=== PATIENT | male | born 1975 | race African-American/Black ===

== ENCOUNTER 2023-08-02 13:59 | Inpatient (IN) | payer OTHER ==
[~2023-08-02] VITALS: Ht 172.7 cm; Wt 75.0 kg
[2023-08-02] VITALS (8 sets, daily range): BP systolic 83–118; BP diastolic 57–75; PULSE 61–71; RESP 18; TEMP 96.8–98
[~2023-08-02 13:59] MED LIST: AMBR10TA3 PO; AMIO200T68 PO; APIX2.5T PO; B CO1CAP6 PO; CARV3 PO; CETI-450 PO; CLOP75TA60 PO; PANT-31 PO; PRAV20TA4 PO; SILD20TA PO; TRIA16.911 NASAL
[2023-08-02 14:35] LABS: BASOPHILS % (AUTO) 0.9 % (0.0-2.0); HEMATOCRIT 35.8 % (41-53); HEMOGLOBIN 11.4 g/dL (13.5-17.5); LYMPHOCYTES # (AUTO) 0.9 K/uL (1.0-4.8); LYMPHOCYTES % (AUTO) 21.2 % (22.0-44.0); MEAN CORPUSCULAR HEMOGLOBIN 28.7 pg (26.0-34.0); MEAN CORPUSCULAR HGB CONC 31.7 G/dL (31.0-37.0); MEAN CORPUSCULAR VOLUME 91 fL (80-100); MONOCYTES # (AUTO) 0.3 K/uL (0.1-1.0); MONOCYTES % (AUTO) 5.9 % (2.0-9.0); NEUTROPHILS # (AUTO) 2.9 K/uL (1.8-7.7); PLATELET COUNT (AUTO) 149 K/uL (150-450); RED BLOOD CELL COUNT(AUTO) 3.96 MIL/uL (4.50-5.90); RED CELL DISTRIBUTION WIDTH 19.3 % (11.5-14.5); WHITE BLOOD COUNT (AUTO) 4.5 K/uL (4.5-11.0)
[2023-08-02 14:42] LABS: CALCIUM, TOTAL 10.1 mg/dL (8.8-10.5); CREATININE 15.46 mg/dL (0.60-1.30); POTASSIUM 5.2 mmol/L (3.5-5.1)
[2023-08-02 14:56] LABS: TROPONIN I-HIGH SENSITIVITY 71 ng/L (<76)
[2023-08-02] MEDS ORDERED: ACETAMINOPHEN 325 MG TABLET PO PRN (16:00)
[2023-08-02] MEDS ORDERED: SODIUM CHLORIDE 0.9% 2,000 ML ONE (20:59)
[2023-08-02] MEDS: APIXABAN 2.5 MG TABLET PO SCH (21:00)
[2023-08-03 00:20] VITALS: BP 91/61; PULSE 70; RESP 18
[2023-08-03 00:50] VITALS: BP 106/70; PULSE 73; RESP 18; TEMP 98
[2023-08-03 04:27] VITALS: BP 117/70; PULSE 72; RESP 18; TEMP 97.8
[2023-08-03 08:09] VITALS: BP 104/72; PULSE 64; RESP 18; TEMP 98.2
[2023-08-03] MEDS: AMIODARONE HCL 200 MG TABLET PO SCH (08:19)
[2023-08-03] MEDS: FAMOTIDINE 20 MG TABLET PO SCH (08:19)
[2023-08-03] MEDS ORDERED: ACET-2247 PO (09:52)
== END 2023-08-03 13:22 | DRG 682 ==
LOC: EMS 13:59 → EDH 16:41 → 6S 20:02
PROVIDERS: ADMIT Internal Medicine; ATTEND Internal Medicine
PROC: 5A1D70Z Performance of Urinary Filtration, Intermittent, Less than 6 Hours Per Day (ICD-10-PCS; principal; 2023-08-02)
DX: I12.0 Hypertensive chronic kidney disease with stage 5 chronic kidney disease or end stage renal disease (principal); N18.6 End stage renal disease; E87.5 Hyperkalemia; D63.8 Anemia in other chronic diseases classified elsewhere; N25.0 Renal osteodystrophy; I48.0 Paroxysmal atrial fibrillation; Z88.6 Allergy status to analgesic agent; Z99.2 Dependence on renal dialysis; Z79.01 Long term (current) use of anticoagulants; Z79.899 Other long term (current) drug therapy; Z90.49 Acquired absence of other specified parts of digestive tract; D63.1 Anemia in chronic kidney disease
CPT/HCPCS: 80048; 84484; 85025; 87081; 90935; 93005; 99285; J7030

== ENCOUNTER 2023-08-04 08:53 | Inpatient (IN) | payer OTHER ==
[~2023-08-04] VITALS: Ht 172.7 cm; Wt 75.0 kg
[2023-08-04] VITALS (12 sets, daily range): BP systolic 90–102; BP diastolic 54–70; PULSE 66–74; RESP 17–18; TEMP 96.5–97.9
[~2023-08-04 08:53] MED LIST changes: +ACET-2247 PO; -CARV3 PO; -CETI-450 PO
[2023-08-04 09:30] LABS: BASOPHILS % (AUTO) 2.4 % (0.0-2.0); HEMATOCRIT 38.1 % (41-53); HEMOGLOBIN 12.2 g/dL (13.5-17.5); LYMPHOCYTES # (AUTO) 1.1 K/uL (1.0-4.8); LYMPHOCYTES % (AUTO) 29.7 % (22.0-44.0); MEAN CORPUSCULAR HEMOGLOBIN 28.8 pg (26.0-34.0); MEAN CORPUSCULAR VOLUME 90 fL (80-100); MONOCYTES # (AUTO) 0.3 K/uL (0.1-1.0); MONOCYTES % (AUTO) 7.5 % (2.0-9.0); NEUTROPHILS % (AUTO) 53.4 % (40.0-70.0); PLATELET COUNT (AUTO) 153 K/uL (150-450); RED BLOOD CELL COUNT(AUTO) 4.23 MIL/uL (4.50-5.90); RED CELL DISTRIBUTION WIDTH 18.9 % (11.5-14.5); WHITE BLOOD COUNT (AUTO) 3.7 K/uL (4.5-11.0)
[2023-08-04 09:43] LABS: CALCIUM, TOTAL 10.2 mg/dL (8.8-10.5); CREATININE 13.16 mg/dL (0.60-1.30)
[2023-08-04] MEDS ORDERED: TRIAMCINOLONE ACET 55 MCG/SPRAY 16.9 ML NASAL SPRAY NASAL PRN (10:30)
[2023-08-04] MEDS ORDERED: ACETAMINOPHEN 325 MG TABLET PO PRN (10:30)
[2023-08-04] MEDS: SILDENAFIL CITRATE 20 MG TABLET PO SCH (16:39)
[2023-08-04] MEDS ORDERED: APIXABAN 2.5 MG TABLET PO SCH (21:00)
[2023-08-05] MEDS ORDERED: PANTOPRAZOLE SODIUM 40 MG DR TABLET PO SCH (09:00)
[2023-08-05] MEDS ORDERED: PRAVASTATIN SODIUM 20 MG TABLET PO SCH (09:00)
[2023-08-05] MEDS ORDERED: AMIODARONE HCL 200 MG TABLET PO SCH (09:00)
[2023-08-05] MEDS ORDERED: CLOPIDOGREL BISULFATE 75 MG TABLET PO SCH (09:00)
== END 2023-08-04 17:23 | DRG 682 ==
LOC: EMS 08:53 → INTOOBSV 11:06 → OBSVTOIN 11:06 → EDH 11:06
PROVIDERS: ADMIT Hospitalist; ATTEND Hospitalist
PROC: 5A1D70Z Performance of Urinary Filtration, Intermittent, Less than 6 Hours Per Day (ICD-10-PCS; principal; 2023-08-04)
DX: I12.0 Hypertensive chronic kidney disease with stage 5 chronic kidney disease or end stage renal disease (principal); N18.6 End stage renal disease; E78.5 Hyperlipidemia, unspecified; K21.9 Gastro-esophageal reflux disease without esophagitis; Z88.6 Allergy status to analgesic agent; Z99.2 Dependence on renal dialysis; Z90.49 Acquired absence of other specified parts of digestive tract
CPT/HCPCS: 80048; 85025; 90935; 99285; G0378